=== PATIENT | female | born 1985 | race Caucasian/White ===

== ENCOUNTER → 2017-11-01 | Outpatient (CLI) | payer OTHER | LOC: COL.RAD 12:15 | DX: D18.03 Hemangioma of intra-abdominal structures (principal); K76.9 Liver disease, unspecified; Z88.1 Allergy status to other antibiotic agents | CPT/HCPCS: A9585 ==

== ENCOUNTER → 2018-02-02 | Outpatient (CLI) | payer OTHER | LOC: COL.RAD 01-05 08:30 | DX: I77.4 Celiac artery compression syndrome (principal); K76.9 Liver disease, unspecified | CPT/HCPCS: Q9967 ==